=== PATIENT | male | born 1995 | race Asian ===

== ENCOUNTER 2021-06-14 10:25 | Emergency (ER) | payer OTHER ==
[~2021-06-14] VITALS: Ht 162.6 cm; Wt 67.7 kg
[2021-06-14 10:39] VITALS: BP 117/64
[2021-06-14] MEDS ORDERED: NEOSPORIN OINT 0.9 GM PKT TOP ONE (11:35)
== END 2021-06-14 11:50 | disposition home or self-care (01) ==
LOC: M ED 10:25
DX: S81.811A Laceration without foreign body, right lower leg, initial encounter (principal); S80.811A Abrasion, right lower leg, initial encounter; W01.198A Fall on same level from slipping, tripping and stumbling with subsequent striking against other object, initial encounter; Y92.89 Other specified places as the place of occurrence of the external cause; Y99.0 Civilian activity done for income or pay; F17.210 Nicotine dependence, cigarettes, uncomplicated